=== PATIENT | female | born 1990 | race Caucasian/White ===

== ENCOUNTER 2016-10-16 20:30 | Emergency (ER) | payer SELFPAY ==
[~2016-10-16] VITALS: Ht 172.7 cm; Wt 61.4 kg
[~2016-10-16 20:30] MED LIST: PRENATAL1 TA1 PO
[2016-10-16 20:39] VITALS: BP 103/64; TEMP 98.1
[2016-10-16] MEDS ORDERED: PRENATAL1 TA7 PO (20:43)
[2016-10-16 21:23] LABS: BASO # 0.1 (0.0-0.2); BASO % 0.4 % (0.0-2.0); EOS # 0.1 (0.0-0.7); EOS % 0.7 % (0-4.0); GRAN # 9.3 (1.4-6.5); GRAN % 75.2 % (42.2-75.2); LYMPH # 1.9 (1.2-3.4); LYMPH % 15.2 % (20.0-51.0); MEAN CELL VOLUME 87 fl (80.0-100.0); MEAN CORPUSCULAR HGB CONC 34 g/dl (33.0-37.0); MEAN PLATELET VOLUME 9.8 fl (7.4-10.4); MONO % 7.9 % (1.7-9.3); PLATELET COUNT 268 K/mm3 (130-400); RED BLOOD COUNT 3.97 M/mm3 (4.10-5.30); REDCELL DISTRIBUTION WIDTH-CV 13.4 % (11.5-14.5); WHITE BLOOD COUNT 12.3 K/mm3 (4.8-10.8)
[2016-10-16 21:24] LABS: HEMATOCRIT 34.4 % (37.0-47.0); HEMOGLOBIN 11.7 g/dl (12.5-16.0); MEAN CORPUSCULAR HEMOGLOBIN 29 pg (27.0-31.0)
[2016-10-16 21:32] LABS: ALBUMIN 3.8 gm/dL (3.5-5.0); BILIRUBIN,TOTAL 0.6 mg/dL (0.0-1.0); CALCIUM 8.8 mg/dL (8.4-10.2); CREATININE, serum 0.56 mg/dL (0.52-1.25); POTASSIUM 3.4 mmol/L (3.4-5.0)
[2016-10-16 22:06] LABS: PH 6 (5-8); URINE APPEARANCE Cloudy; URINE BACTERIA Rare /hpf; URINE BILIRUBIN Negative (NEGATIVE); URINE BLOOD Negative (NEGATIVE); URINE COLOR Yellow; URINE GLUCOSE Negative (NEGATIVE); URINE KETONE Negative (NEGATIVE); URINE UROBILINOGEN Negative (NEGATIVE); URINE WBC >50 /hpf
[2016-10-16] MEDS ORDERED: MACROBID 1100 MG/CAP PO (22:31)
[2016-10-16 23:09] VITALS: PULSE 92
== END 2016-10-16 23:10 | disposition home or self-care (01) ==
LOC: COL.ER 20:30
PROVIDERS: Emergency Medicine
DX: O23.42 Unspecified infection of urinary tract in pregnancy, second trimester (principal); B96.20 Unspecified Escherichia coli [E. coli] as the cause of diseases classified elsewhere; Z3A.17 17 weeks gestation of pregnancy
CPT/HCPCS: J0696; J7030

== ENCOUNTER 2017-02-13 13:55 | Inpatient (IN) | payer MEDICAID ==
[~2017-02-13] VITALS: Ht 172.7 cm; Wt 66.4 kg
[~2017-02-13 13:55] MED LIST changes: +MACROBID 1100 MG/CAP PO; +PRENATAL1 TA7 PO
[2017-03-14] VITALS (22 sets, daily range): BP systolic 90–122; BP diastolic 62–88; PULSE 63–93; TEMP 97.7–98.2
[2017-03-14 17:15] LABS: BASO # 0.1 (0.0-0.2); BASO % 0.6 % (0.0-2.0); EOS % 0.4 % (0-4.0); GRAN # 8.3 (1.4-6.5); GRAN % 73.8 % (42.2-75.2); HEMOGLOBIN 12.1 g/dl (12.5-16.0); LYMPH # 1.8 (1.2-3.4); LYMPH % 16.2 % (20.0-51.0); MEAN CELL VOLUME 86 fl (80.0-100.0); MEAN CORPUSCULAR HEMOGLOBIN 29 pg (27.0-31.0); MEAN CORPUSCULAR HGB CONC 33 g/dl (33.0-37.0); MEAN PLATELET VOLUME 11.4 fl (7.4-10.4); MONO # 0.9 (0.1-0.6); MONO % 8.1 % (1.7-9.3); PLATELET COUNT 228 K/mm3 (130-400); RED BLOOD COUNT 4.22 M/mm3 (4.10-5.30); WHITE BLOOD COUNT 11.3 K/mm3 (4.8-10.8)
[2017-03-14 17:22] LABS: HEMATOCRIT 36.2 % (37.0-47.0)
[2017-03-15 04:00] VITALS: BP 108/63; PULSE 62; TEMP 97.8
[2017-03-15 07:11] LABS: HEMATOCRIT 30.9 % (37.0-47.0); HEMOGLOBIN 10.3 g/dl (12.5-16.0)
[2017-03-15 07:20] VITALS: BP 121/71; PULSE 60; TEMP 97.6
[2017-03-15] MEDS ORDERED: IBU600 MG PO (09:08)
[2017-03-15] MEDS ORDERED: PERCOCET 325 MG1 TA2 PO (09:09)
[2017-03-15 17:13] VITALS: BP 114/73; PULSE 65; TEMP 97.7
[2017-03-15 20:30] VITALS: BP 110/72; PULSE 68; TEMP 97.8
[2017-03-16 07:00] VITALS: BP 114/68; PULSE 64; TEMP 98.1
== END 2017-03-16 16:30 | disposition home or self-care (01) | DRG 775 ==
LOC: LDRO → LDR 03-14 08:22 → OB 03-14 16:39 → EDSTATUS 03-18 08:21 → LDRO 03-18 13:54
PROVIDERS: Obstetrics & Gynecology
PROC: 10E0XZZ Delivery of Products of Conception, External Approach (ICD-10-PCS; principal; 2017-03-14)
PROC: 3E033VJ Introduction of Other Hormone into Peripheral Vein, Percutaneous Approach (ICD-10-PCS; 2017-03-14)
DX: O32.0XX0 Maternal care for unstable lie, not applicable or unspecified (principal); O69.81X0 Labor and delivery complicated by cord around neck, without compression, not applicable or unspecified; Z3A.39 39 weeks gestation of pregnancy; Z37.0 Single live birth
CPT/HCPCS: J2590; J7120

== ENCOUNTER 2017-03-12 00:53 | Outpatient (CLI) | payer MEDICAID ==
[~2017-03-12] VITALS: Ht 172.7 cm; Wt 66.4 kg
[2017-03-12 01:15] VITALS: BP 124/75; PULSE 71; TEMP 97.7
[2017-03-12 01:30] VITALS: BP 124/75; PULSE 71; TEMP 97.7
[2017-03-12 02:00] VITALS: BP 114/72; PULSE 68
[2017-03-12 02:29] VITALS: BP 114/71; PULSE 66
== END 2017-03-12 02:45 | disposition home or self-care (01) ==
LOC: LDRO 00:53
DX: O62.9 Abnormality of forces of labor, unspecified (principal); Z3A.39 39 weeks gestation of pregnancy

== ENCOUNTER 2018-06-19 17:03 | Outpatient (CLI) | payer MEDICAID ==
[~2018-06-19] VITALS: Ht 172.7 cm; Wt 67.7 kg
[~2018-06-19 17:03] MED LIST changes: +IBU600 MG PO; +PERCOCET 325 MG1 TA2 PO
[2018-06-19 17:12] VITALS: BP 126/74; PULSE 60; TEMP 98.1
[2018-06-19 17:30] VITALS: BP 126/74; PULSE 60; TEMP 98.1
[2018-06-19 17:41] LABS: COLLECTION METHOD CLEAN CATCH
[2018-06-19 17:50] VITALS: BP 109/60; PULSE 67
[2018-06-19 17:54] LABS: MUCOUS Present /lpf; PH 5 (5-8); SQUAMOUS EPITHELIAL 20-50 /hpf; URINE APPEARANCE Turbid; URINE BACTERIA Rare /hpf; URINE BILIRUBIN Negative (NEGATIVE); URINE BLOOD Negative (NEGATIVE); URINE COLOR Amber; URINE GLUCOSE Negative (NEGATIVE); URINE KETONE Negative (NEGATIVE); URINE LEUKOCYTE ESTERASE 1+ (NEGATIVE); URINE NITRATE Negative (NEGATIVE); URINE PROTEIN(semi-quant) 1+ (NEGATIVE); URINE UROBILINOGEN Negative (NEGATIVE)
== END 2018-06-19 18:00 | disposition home or self-care (01) ==
LOC: LDRO 17:03
PROVIDERS: Obstetrics & Gynecology
DX: O62.9 Abnormality of forces of labor, unspecified (principal); Z3A.37 37 weeks gestation of pregnancy

== ENCOUNTER 2018-06-24 17:17 | Inpatient (IN) | payer MEDICAID ==
[~2018-06-24] VITALS: Ht 172.7 cm; Wt 67.7 kg
[2018-06-24] VITALS (12 sets, daily range): BP systolic 120–173; BP diastolic 56–100; PULSE 55–83; TEMP 97.5–97.6
[2018-06-24 17:55] LABS: BASO % 0.5 % (0.0-2.0); EOS % 0.5 % (0-4.0); GRAN # 5.8 (1.4-6.5); GRAN % 65.7 % (42.2-75.2); HEMATOCRIT 37.1 % (37.0-47.0); HEMOGLOBIN 12.7 g/dl (12.5-16.0); LYMPH # 2.1 (1.2-3.4); LYMPH % 24.3 % (20.0-51.0); MEAN CELL VOLUME 85 fl (80.0-100.0); MEAN CORPUSCULAR HEMOGLOBIN 29 pg (27.0-31.0); MEAN CORPUSCULAR HGB CONC 34 g/dl (33.0-37.0); MEAN PLATELET VOLUME 11.7 fl (7.4-10.4); MONO # 0.8 (0.1-0.6); MONO % 8.5 % (1.7-9.3); PLATELET COUNT 214 K/mm3 (130-400); RED BLOOD COUNT 4.37 M/mm3 (4.10-5.30); REDCELL DISTRIBUTION WIDTH-CV 14.3 % (11.5-14.5)
[2018-06-24 18:11] LABS: ALBUMIN 3.8 gm/dL (3.5-5.0); BILIRUBIN,TOTAL 0.4 mg/dL (0.0-1.0); CALCIUM 8.7 mg/dL (8.4-10.2); CREATININE, serum 0.64 mg/dL (0.52-1.25); TOTAL PROTEIN 7.1 gm/dL (6.4-8.2)
[2018-06-24 18:23] LABS: TRICYCLIC ANTIDEPRESS URINE NEGATIVE
[2018-06-25 02:15] VITALS: BP 139/88; PULSE 53
[2018-06-25 05:35] VITALS: BP 121/80; PULSE 55
[2018-06-25] MEDS ORDERED: IBU600 MG PO (08:08)
[2018-06-25 08:30] VITALS: BP 140/81; PULSE 53; TEMP 97.7
[2018-06-25 12:15] VITALS: BP 125/85; PULSE 55; TEMP 97.7
[2018-06-25 16:45] VITALS: BP 125/83; PULSE 63; TEMP 97.8
[2018-06-25 20:20] VITALS: BP 122/89; PULSE 65; TEMP 97.5
[2018-06-26 08:00] VITALS: BP 113/79; PULSE 69; TEMP 98.1
[2018-06-26 16:15] VITALS: BP 115/77; PULSE 57; TEMP 97.2
== END 2018-06-26 17:35 | disposition home or self-care (01) | DRG 807 ==
LOC: LDRO 17:17 → OB 17:32 → LDR 17:32 → OB 21:00
PROVIDERS: Obstetrics & Gynecology
PROC: 10E0XZZ Delivery of Products of Conception, External Approach (ICD-10-PCS; principal; 2018-06-24)
DX: O36.5930 Maternal care for other known or suspected poor fetal growth, third trimester, not applicable or unspecified (principal); Z37.0 Single live birth; Z3A.38 38 weeks gestation of pregnancy; O13.4 Gestational [pregnancy-induced] hypertension without significant proteinuria, complicating childbirth; O69.81X0 Labor and delivery complicated by cord around neck, without compression, not applicable or unspecified; O99.344 Other mental disorders complicating childbirth; F41.9 Anxiety disorder, unspecified
CPT/HCPCS: J2590; J7120

== ENCOUNTER 2019-07-25 13:04 | Emergency (ER) | payer SELFPAY ==
[~2019-07-25] VITALS: Ht 172.7 cm; Wt 56.8 kg
[2019-07-25 13:12] VITALS: BP 115/55
[2019-07-25] MEDS ORDERED: PEN-VEE K500 MG PO (13:44)
[2019-07-25 13:50] VITALS: PULSE 72; TEMP 98.6
== END 2019-07-25 13:50 | disposition home or self-care (01) ==
LOC: COL.ER 13:04
DX: K08.89 Other specified disorders of teeth and supporting structures (principal); K04.7 Periapical abscess without sinus; F17.200 Nicotine dependence, unspecified, uncomplicated